=== PATIENT | female | born 1995 | race Caucasian/White ===

== ENCOUNTER 2017-02-02 07:15 | Emergency (ER) | payer BC ==
--- NOTE | 2017-02-02 08:16 | UC ---
Ear Complaint HPI - HPI Summary HPI Summary: 21 yo female with URI symptoms x days now with left ear ache and decreased hearing no f/c no hx OM - History of Current Complaint Chief Complaint: UCGeneralIllness Stated Complaint: EAR PAIN Time Seen by Provider: 02/02/17 07:53 Hx Obtained From: Patient Hx Last Menstrual Period: 01/19/17 Onset/Duration: Gradual Onset, Lasting Days Severity Initially: Mild Severity Currently: Moderate Pain Intensity: 4 Pain Scale Used: 0-10 Numeric Aggravating Factors: Nothing - actually it worsens when supine Alleviating Factors: Nothing Associated Signs/Symptoms: Positive: Hearing Loss, URI Symptoms - Allergies/Home Medications Allergies/Adverse Reactions: Allergies Allergy/AdvReac Type Severity Reaction Status Date / Time No Known Allergies Allergy Verified 02/02/17 07:32 Home Medications: Home Medications Clindamycin 1% TOPICAL(NF) [Cleocin-T 1% TOPICAL(NF)] 1 % EX DAILY 02/02/17 [ History Confirmed 02/02/17] Norgestimate-Ethinyl Estradiol [Harding-Linyah] 1 tab PO DAILY 02/02/17 [History Confirmed 02/02/17] PMH/Surg Hx/FS Hx/Imm Hx Previously Healthy: Yes - Surgical History Surgical History: None - Family History Known Family History: Positive: Cardiac Disease - grandparents, Hypertension - grandparents, Diabetes - grandparents - Social History Alcohol Use: None Substance Use Type: None Smoking Status (MU): Never Smoked Tobacco Review of Systems Constitutional: Negative Skin: Negative Eyes: Negative ENT: Sore Throat, Ear Ache, Nasal Discharge Respiratory: Negative Cardiovascular: Negative Gastrointestinal: Negative Genitourinary: Negative Motor: Negative Neurovascular: Negative Musculoskeletal: Negative Neurological: Negative Psychological: Negative All Other Systems Reviewed And Are Negative: Yes Physical Exam Triage Information Reviewed: Yes Appearance: Well-Appearing, No Pain Distress, Well-Nourished Vital Signs: Initial Vital Signs Temp 99.7 F 02/02/17 07:28 Pulse 119 02/02/17 07:28 Resp 16 02/02/17 07:28 BP 127/82 02/02/17 07:28 Pulse Ox 99 02/02/17 07:28 Vital Signs Reviewed: Yes Eyes: Positive: Conjunctiva Clear ENT: Positive: TMs normal - right, TM bulging - left, TM red - left, Tonsillar swelling, Tonsillar exudate. Negative: Hearing grossly normal - decreased hearing left ear, Trismus, Muffled/hoarse voice Neck: Positive: Supple, Nontender, Enlarged Nodes @ - ant cervical nodes Respiratory: Positive: Lungs clear, Normal breath sounds, No respiratory distress Cardiovascular: Positive: RRR, No Murmur, Tachycardia Musculoskeletal: Positive: ROM Intact, No Edema Neurological: Positive: Alert Psychological Exam: Normal Skin Exam: Normal Ear Complaint Course/Dx - Differential Dx/Diagnosis Provider Diagnoses: left otitis media. tonsillitis Discharge - Discharge Plan Condition: Stable Disposition: HOME Prescriptions: Amoxicillin (*) 875 mg PO BID #20 tab Patient Education Materials: Otitis Media (ED) Referrals: Brissa Bowen PA [Primary Care Provider] - 2 Weeks (if hearing not back to normal) Additional Instructions: tylenol or advil for pain pain should markedly decrease after a couple of days if you hearing is still muffled after a couple of weeks get rechecked
[2017-02-02 08:17] VITALS: BP 120/82
== END 2017-02-02 08:15 | disposition home or self-care (01) ==
LOC: UCCORT 07:15
DX: H66.92 Otitis media, unspecified, left ear (principal); J03.90 Acute tonsillitis, unspecified
CPT/HCPCS: 99202; G0463

== ENCOUNTER 2018-11-02 20:06 | Emergency (ER) | payer BC, OTHER ==
--- NOTE | 2018-11-02 20:11 | UC ---
Laceration HPI - HPI Summary HPI Summary: 23 yo female presents with laceration to right thumb. She tells me that about 15 min [employer] INS[employer]PER[employer] she was hamburgers for dinner and the knife slipped and she sustained a laceration to the tip of her right thumb. She bandaged the area and came to urgent care. She thinks her last tetanus was in 2013. - History Of Current Complaint Stated Complaint: LAC RT THUMB Time Seen by Provider: 11/02/18 20:10 Hx Obtained From: Patient Hx Last Menstrual Period: 09/29/17 Laceration Location: Finger Mechanism Of Injury: Sharp Trauma Onset/Duration: Sudden Onset Severity: Mild Pain Intensity: 3 Pain Scale Used: 0-10 Numeric - Allergies/Home Medications Allergies/Adverse Reactions: Allergies Allergy/AdvReac Type Severity Reaction Status Date / Time No Known Allergies Allergy Verified 11/02/18 20:20 PMH/Surg Hx/FS Hx/Imm Hx - Additional Past Medical History Additional PMH: None - Surgical History Surgical History: None - Family History Known Family History: Positive: Cardiac Disease - grandparents, Hypertension - grandparents, Diabetes - grandparents - Social History Occupation: Student Lives: Dormitory/Roommates Alcohol Use: None Substance Use Type: None Smoking Status (MU): Never Smoked Tobacco Have You Smoked in the Last Year: No Review of Systems All Other Systems Reviewed And Are Negative: Yes Constitutional: Positive: Negative Skin: Positive: Other - Laceration right thumb Respiratory: Positive: Negative Cardiovascular: Positive: Negative Neurovascular: Positive: Negative Musculoskeletal: Positive: Negative Neurological: Positive: Negative Physical Exam - Summary Physical Exam Summary: GENERAL: NAD. WDWN. No pain distress. SKIN: RIGHT THUMB: At tip there is a 5mm linear superficial laceration that is well approximated at rest. No bleeding. Clean and without FB. CHEST: No accessory muscle use. Breathing comfortably and in no distress. CV: Pulses intact. Cap refill <2seconds NEURO: Alert. PSYCH: Age appropriate behavior. Triage Information Reviewed: Yes Vital Signs: Vital Signs: Temp Pulse Resp BP Pulse Ox 97.4 F 71 16 126/79 100 11/02/18 20:16 11/02/18 20:16 11/02/18 20:16 11/02/18 20:16 11/02/18 20:16 Vital Signs Reviewed: Yes Laceration Repair - Laceration Repair 1 Description: Linear Laceration Size After Repair: Length (cm) - 0.5 Modified For Repair: No Irrigation With Pressure Irrigation Device: Yes Closure Material: Skin Adhesive Laceration Course/Dx - Course/Dx Course Of Treatment: The laceration was irrigated with 250mL NS. The laceration is well approximated at rest and therefore dermabond was applied. A band-aid applied. Advised to keep covered until well healed - Diagnosis Provider Diagnosis: Laceration of right thumb Discharge - Sign-Out/Discharge Documenting (check all that apply): Patient Departure All imaging exams completed and their final reports reviewed: No Studies - Discharge Plan Condition: Stable Disposition: HOME Patient Education Materials: Laceration (DC), Skin Adhesive Care (ED) Referrals: Brissa Fairbanks PA [Physician Academic Success Coordinator] - Additional Instructions: If you develop a fever, shortness of breath, chest pain, new or worsening symptoms - please call your PCP or go to the ED. 1) Keep the area covered with a band-aid until well healed 2) The glue will come off naturally in about 7 days - Billing Disposition and Condition Condition: STABLE Disposition: Home
[2018-11-02 20:20] VITALS: BP 126/79
== END 2018-11-02 20:39 | disposition home or self-care (01) ==
LOC: UCCORT 20:06
DX: S61.011A Laceration without foreign body of right thumb without damage to nail, initial encounter (principal); W26.0XXA Contact with knife, initial encounter; Y93.G1 Activity, food preparation and clean up; Y92.9 Unspecified place or not applicable
CPT/HCPCS: 12001; 99211; G0463